=== PATIENT | female | born 1995 | race Caucasian/White ===

== ENCOUNTER 2021-05-14 10:13 | Emergency (ER) | payer MEDICAID ==
[2021-05-14 11:11] LABS: BASO # 0.04 K/mm3 (0.02-0.10); EOS # 0.22 K/mm3 (0.04-0.40); EOS % 3.1 % (1.0-5.0); HEMATOCRIT 44.4 % (37.0-47.0); HEMOGLOBIN 14.4 g/dL (12.5-16.0); LYMPH# 1.66 K/mm3 (1.50-4.00); MEAN CELL VOLUME 83 fl (78-100); MEAN CORPUSCULAR HEMOGLOBIN 27 pg (27-31); MEAN CORPUSCULAR HGB CONC 32 g/dL (33-37); MEAN PLATELET VOLUME 11.4 fl (7.4-10.4); MONO # 0.55 K/mm3 (0.20-0.80); NEU # 4.72 K/mm3 (1.40-6.50); PLATELET COUNT 230 K/mm3 (130-400); RED BLOOD COUNT 5.35 M/mm3 (4.10-5.30); RED CELL DISTRIBUTION WIDTH 14.5 % (11.5-14.5); WHITE BLOOD COUNT 7.2 K/mm3 (4.8-10.8)
[2021-05-14] MEDS ORDERED: AZITHROMYCIN 250MGPK PO ×2 (13:11→13:14)
[2021-05-14] MEDS ORDERED: RT ALBUTEROL CC18 GM IH ×2 (13:11→13:14)
[2021-05-14] MEDS ORDERED: PREDNISONE20 M1 PO ×2 (13:11→13:14)
[2021-05-14 13:21] VITALS: BP 123/81
== END 2021-05-14 13:20 | disposition home or self-care (01) ==
LOC: ED 10:13
PROVIDERS: Family Medicine
DX: J45.909 Unspecified asthma, uncomplicated (principal); M94.0 Chondrocostal junction syndrome [Tietze]

== ENCOUNTER 2021-06-22 15:27 | Emergency (ER) | payer MEDICAID ==
[~2021-06-22 15:27] MED LIST: AZITHROMYCIN 250MGPK PO; PREDNISONE20 M1 PO; RT ALBUTEROL CC18 GM IH
[2021-06-22] MEDS ORDERED: DEXTROAMPH SACC10 M1 PO (15:46)
[2021-06-22 17:03] LABS: BASO # 0.03 K/mm3 (0.02-0.10); EOS # 0.01 K/mm3 (0.04-0.40); EOS % 0.1 % (1.0-5.0); HEMATOCRIT 39.7 % (37.0-47.0); LYMPH# 0.64 K/mm3 (1.50-4.00); MEAN CELL VOLUME 82 fl (78-100); MEAN CORPUSCULAR HEMOGLOBIN 27 pg (27-31); MEAN CORPUSCULAR HGB CONC 33 g/dL (33-37); MEAN PLATELET VOLUME 11.6 fl (7.4-10.4); MONO # 0.63 K/mm3 (0.20-0.80); NEU # 8.38 K/mm3 (1.40-6.50); PLATELET COUNT 200 K/mm3 (130-400); RED BLOOD COUNT 4.82 M/mm3 (4.10-5.30); RED CELL DISTRIBUTION WIDTH 14.1 % (11.5-14.5); WHITE BLOOD COUNT 9.7 K/mm3 (4.8-10.8)
[2021-06-22 17:19] LABS: ALBUMIN 4.3 g/dL (3.5-5.0); POTASSIUM 3.2 mmol/L (3.5-5.1)
[2021-06-22 17:20] LABS: CALCIUM 9.3 mg/dL (8.3-10.5)
[2021-06-22 17:21] LABS: TOTAL PROTEIN 7.3 g/dL (6.4-8.3)
[2021-06-22 17:23] LABS: TOTAL BILIRUBIN 0.6 mg/dL (0.2-1.2)
[2021-06-22 17:29] LABS: URINE APPEARANCE CLEAR; URINE COLOR YELLOW; URINE GLUCOSE NEGATIVE (NEGATIVE); URINE PROTEIN(semi-quant) 1+ (NEGATIVE)
[2021-06-22 17:30] LABS: URINE BILIRUBIN NEGATIVE (NEGATIVE); URINE BLOOD 250 ery/uL (NEGATIVE); URINE KETONE 2+ (NEGATIVE); URINE LEUKOCYTE ESTERASE 1+ (NEGATIVE); URINE MUCUS PRESENT (NOT PRESENT); URINE NITRATE NEGATIVE (NEGATIVE); URINE UROBILINOGEN NORMAL (NORMAL); URINE WBC 16-30 /hpf (0-3)
[2021-06-22 18:46] LABS: CLUE CELLS NOT OBSERVED (Not Observd)
[2021-06-22] MEDS ORDERED: PERCOCET 325 MG1 TA2 PO (20:10)
[2021-06-22 20:38] VITALS: BP 118/85
== END 2021-06-22 20:38 | disposition home or self-care (01) ==
LOC: ED 15:27
PROVIDERS: Physician Assistant
DX: N83.201 Unspecified ovarian cyst, right side (principal); F17.200 Nicotine dependence, unspecified, uncomplicated; Z90.49 Acquired absence of other specified parts of digestive tract
CPT/HCPCS: J2270; J2405; J3010; Q0111

== ENCOUNTER → 2021-06-27 | Outpatient (CLI) | payer MEDICAID ==
[~2021-06-27] MED LIST changes: +DEXTROAMPH SACC10 M1 PO; +PERCOCET 325 MG1 TA2 PO
== END ==
LOC: RAD 07:00
DX: N63.10 Unspecified lump in the right breast, unspecified quadrant (principal)

== ENCOUNTER → 2021-09-06 | Outpatient (CLI) | payer MEDICAID ==
[2021-09-06 11:24] LABS: BASO # 0.04 K/mm3 (0.02-0.10); EOS # 0.13 K/mm3 (0.04-0.40); EOS % 1.7 % (1.0-5.0); HEMATOCRIT 39.6 % (37.0-47.0); HEMOGLOBIN 12.5 g/dL (12.5-16.0); LYMPH# 1.67 K/mm3 (1.50-4.00); MEAN CELL VOLUME 82 fl (78-100); MEAN CORPUSCULAR HEMOGLOBIN 26 pg (27-31); MEAN CORPUSCULAR HGB CONC 32 g/dL (33-37); MEAN PLATELET VOLUME 10.9 fl (7.4-10.4); MONO # 0.53 K/mm3 (0.20-0.80); NEU # 5.38 K/mm3 (1.40-6.50); PLATELET COUNT 244 K/mm3 (130-400); RED BLOOD COUNT 4.83 M/mm3 (4.10-5.30); RED CELL DISTRIBUTION WIDTH 13.2 % (11.5-14.5); WHITE BLOOD COUNT 7.8 K/mm3 (4.8-10.8)
[2021-09-06 11:45] LABS: ALBUMIN 4.5 g/dL (3.5-5.0)
[2021-09-06 11:46] LABS: POTASSIUM 4.3 mmol/L (3.5-5.1)
[2021-09-06 11:47] LABS: CALCIUM 9.7 mg/dL (8.3-10.5)
[2021-09-06 11:48] LABS: TOTAL PROTEIN 7.5 g/dL (6.4-8.3)
[2021-09-06 11:50] LABS: TOTAL BILIRUBIN 0.5 mg/dL (0.2-1.2)
== END ==
LOC: LAB 11:02
PROVIDERS: Nurse Practitioner Family
DX: N83.202 Unspecified ovarian cyst, left side (principal); Z90.722 Acquired absence of ovaries, bilateral

== ENCOUNTER 2021-10-10 13:13 | Emergency (ER) | payer MEDICAID ==
[2021-10-10] MEDS ORDERED: ALPRAZOLAM1 MG PO (13:28)
[2021-10-10] MEDS ORDERED: VRAYLAR1.5 MG PO (13:29)
[2021-10-10] MEDS ORDERED: ATARAX 10MG10 MG/TAB PO (13:29)
[2021-10-10 14:03] LABS: HEMATOCRIT 39.6 % (37.0-47.0); HEMOGLOBIN 12.3 g/dL (12.5-16.0); MEAN CELL VOLUME 81 fl (78-100); MEAN CORPUSCULAR HEMOGLOBIN 25 pg (27-31); MEAN CORPUSCULAR HGB CONC 31 g/dL (33-37); PLATELET COUNT 255 K/mm3 (130-400); RED CELL DISTRIBUTION WIDTH 14.2 % (11.5-14.5); WHITE BLOOD COUNT 8.9 K/mm3 (4.8-10.8)
[2021-10-10 14:21] LABS: ALBUMIN 4.1 g/dL (3.5-5.0); POTASSIUM 4.3 mmol/L (3.5-5.1); SODIUM 140 mmol/L (136-145)
[2021-10-10 14:22] LABS: CALCIUM 8.9 mg/dL (8.3-10.5)
[2021-10-10 14:23] LABS: GLUCOSE 70 mg/dL (65-105)
[2021-10-10 14:24] LABS: TOTAL PROTEIN 7.2 g/dL (6.4-8.3)
[2021-10-10 14:25] LABS: BASO # 0.06 K/mm3 (0.02-0.10); CARBON DIOXIDE 24 mmol/L (22-29); EOS # 0.21 K/mm3 (0.04-0.40); EOS % 2.3 % (1.0-5.0); NEU # 5.55 K/mm3 (1.40-6.50); TOTAL BILIRUBIN 0.3 mg/dL (0.2-1.2)
[2021-10-10 14:29] LABS: AST-SGOT 16 U/L (5-34)
[2021-10-10 14:30] LABS: ALT/SGPT 14 U/L (0-55)
[2021-10-10 15:24] LABS: URINE APPEARANCE CLEAR; URINE BILIRUBIN NEGATIVE (NEGATIVE); URINE BLOOD 250 ery/uL (NEGATIVE); URINE COLOR YELLOW; URINE GLUCOSE NEGATIVE (NEGATIVE); URINE KETONE NEGATIVE (NEGATIVE); URINE LEUKOCYTE ESTERASE NEGATIVE (NEGATIVE); URINE NITRATE NEGATIVE (NEGATIVE); URINE PROTEIN(semi-quant) NEGATIVE (NEGATIVE); URINE UROBILINOGEN NORMAL (NORMAL)
[2021-10-10 15:25] LABS: URINE WBC 0-1 /hpf (0-3)
[2021-10-10] MEDS ORDERED: ZOFRAN ODT4 MG PO (15:54)
[2021-10-10 16:02] VITALS: BP 128/77
== END 2021-10-10 16:00 | disposition home or self-care (01) ==
LOC: ED 13:13
PROVIDERS: Physician Assistant
DX: R10.2 Pelvic and perineal pain (principal); R11.0 Nausea; Z90.49 Acquired absence of other specified parts of digestive tract; Z28.310 Unvaccinated for COVID-19; Z32.02 Encounter for pregnancy test, result negative
CPT/HCPCS: J1885

== ENCOUNTER 2021-12-09 01:56 | Emergency (ER) | payer MEDICAID ==
[~2021-12-09 01:56] MED LIST changes: +ALPRAZOLAM1 MG PO; +ATARAX 10MG10 MG/TAB PO; +VRAYLAR1.5 MG PO; +ZOFRAN ODT4 MG PO
[2021-12-09] MEDS ORDERED: ADDERALL 10 MG10 MG PO (02:14)
[2021-12-09 03:01] LABS: BASO # 0.06 K/mm3 (0.02-0.10); EOS # 0.16 K/mm3 (0.04-0.40); EOS % 1.7 % (1.0-5.0); HEMATOCRIT 41.2 % (37.0-47.0); HEMOGLOBIN 12.7 g/dL (12.5-16.0); LYMPH# 2.29 K/mm3 (1.50-4.00); MEAN CELL VOLUME 80 fl (78-100); MEAN CORPUSCULAR HEMOGLOBIN 25 pg (27-31); MEAN CORPUSCULAR HGB CONC 31 g/dL (33-37); MEAN PLATELET VOLUME 10.5 fl (7.4-10.4); NEU # 6.64 K/mm3 (1.40-6.50); PLATELET COUNT 259 K/mm3 (130-400); RED BLOOD COUNT 5.14 M/mm3 (4.10-5.30); RED CELL DISTRIBUTION WIDTH 15.6 % (11.5-14.5); WHITE BLOOD COUNT 9.7 K/mm3 (4.8-10.8)
[2021-12-09 03:02] LABS: ALBUMIN 4.5 g/dL (3.5-5.0)
[2021-12-09 03:03] LABS: POTASSIUM 3.7 mmol/L (3.5-5.1); SODIUM 140 mmol/L (136-145)
[2021-12-09 03:04] LABS: CALCIUM 9.4 mg/dL (8.3-10.5)
[2021-12-09 03:05] LABS: GLUCOSE 105 mg/dL (65-105); TOTAL PROTEIN 7.8 g/dL (6.4-8.3)
[2021-12-09 03:06] LABS: CARBON DIOXIDE 23 mmol/L (22-29)
[2021-12-09 03:07] LABS: TOTAL BILIRUBIN 0.2 mg/dL (0.2-1.2)
[2021-12-09 03:08] LABS: ALCOHOL IN-HOUSE 178 mg/dL (<10)
[2021-12-09 03:10] LABS: AST-SGOT 26 U/L (5-34)
[2021-12-09 03:12] LABS: ALT/SGPT 28 U/L (0-55)
[2021-12-09 03:15] LABS: ACETAMINOPHEN < 1 ug/mL
[2021-12-09 04:57] VITALS: BP 129/74
== END 2021-12-09 05:00 | disposition home or self-care (01) ==
LOC: ED 01:56
PROVIDERS: Physician Assistant
DX: F41.9 Anxiety disorder, unspecified (principal); F10.129 Alcohol abuse with intoxication, unspecified; F17.200 Nicotine dependence, unspecified, uncomplicated; Y90.6 Blood alcohol level of 120-199 mg/100 ml; Z28.310 Unvaccinated for COVID-19; Z79.899 Other long term (current) drug therapy
CPT/HCPCS: C9113; J2405; J7030

== ENCOUNTER 2021-12-14 22:41 | Emergency (ER) | payer MEDICAID ==
[~2021-12-14] VITALS: Ht 162.6 cm; Wt 69.0 kg
[~2021-12-14 22:41] MED LIST changes: +ADDERALL 10 MG10 MG PO
[2021-12-14] MEDS ORDERED: AMOXICILLIN875 MG PO (23:06)
[2021-12-14 23:19] LABS: BASO # 0.04 K/mm3 (0.02-0.10); EOS # 0.19 K/mm3 (0.04-0.40); EOS % 2.7 % (1.0-5.0); HEMATOCRIT 37.1 % (37.0-47.0); HEMOGLOBIN 11.6 g/dL (12.5-16.0); LYMPH# 1.84 K/mm3 (1.50-4.00); MEAN CELL VOLUME 81 fl (78-100); MEAN CORPUSCULAR HEMOGLOBIN 25 pg (27-31); MEAN CORPUSCULAR HGB CONC 31 g/dL (33-37); MEAN PLATELET VOLUME 11.1 fl (7.4-10.4); MONO # 0.83 K/mm3 (0.20-0.80); NEU # 4.21 K/mm3 (1.40-6.50); PLATELET COUNT 221 K/mm3 (130-400); RED BLOOD COUNT 4.61 M/mm3 (4.10-5.30); RED CELL DISTRIBUTION WIDTH 15.6 % (11.5-14.5); WHITE BLOOD COUNT 7.1 K/mm3 (4.8-10.8)
[2021-12-14 23:27] LABS: ALBUMIN 3.8 g/dL (3.5-5.0); POTASSIUM 4.1 mmol/L (3.5-5.1)
[2021-12-14 23:30] LABS: TOTAL PROTEIN 6.5 g/dL (6.4-8.3)
[2021-12-14 23:31] LABS: TOTAL BILIRUBIN 0.2 mg/dL (0.2-1.2)
[2021-12-15 01:09] VITALS: BP 108/74
== END 2021-12-15 01:10 | disposition home or self-care (01) ==
LOC: ED 22:41
PROVIDERS: Physician Assistant
DX: K59.00 Constipation, unspecified (principal); F17.200 Nicotine dependence, unspecified, uncomplicated; Z90.49 Acquired absence of other specified parts of digestive tract; Z79.891 Long term (current) use of opiate analgesic; Z28.310 Unvaccinated for COVID-19
CPT/HCPCS: J2405; J3010

== ENCOUNTER 2021-12-25 13:25 | Emergency (ER) | payer MEDICAID ==
[~2021-12-25 13:25] MED LIST changes: +AMOXICILLIN875 MG PO
[2021-12-25 13:50] VITALS: BP 113/49
== END 2021-12-25 15:35 | disposition home or self-care (01) ==
LOC: ED 13:25
DX: S83.411A Sprain of medial collateral ligament of right knee, initial encounter (principal); Z88.6 Allergy status to analgesic agent; Z28.310 Unvaccinated for COVID-19; X50.1XXA Overexertion from prolonged static or awkward postures, initial encounter
CPT/HCPCS: 15976; L1830

== ENCOUNTER → 2022-01-05 | Outpatient (CLI) | payer MEDICAID | LOC: RAD 14:10 | DX: S83.411A Sprain of medial collateral ligament of right knee, initial encounter (principal); X58.XXXA Exposure to other specified factors, initial encounter ==